=== PATIENT | male | born 1955 | race Caucasian/White ===

== ENCOUNTER → 2017-06-30 | Outpatient (CLI) | payer MEDICARE ==
[2017-06-30 09:06] LABS: Basophils % (A) 1 %; CHCM 34.1; Eosinophils # (A) 0.1 k/uL (0-0.7); Eosinophils % (A) 2 %; HCT 47.7 % (39.0-53.0); HDW 3.02; HGB 15.7 gm/dL (13.0-17.5); Luc # (Auto) 0.14; Luc % (Auto) 4; Lymphocytes # (A) 1.1 k/uL (1.0-4.8); Lymphocytes % (A) 31 %; MCV 97.2 fL (80.0-100.0); Mean Platelet Volume 6.4; Monocytes # (A) 0.3 k/uL (0-1.0); Monocytes % (A) 10 %; Neutrophils # (A) 1.8 k/uL (1.3-7.7); Neutrophils % (A) 52 %; RBC 4.91 m/uL (4.30-5.90); RDW 13.7 % (11.5-15.5); WBC 3.5 k/uL (3.8-10.6); WBC (Perox) 3.36
[2017-06-30 10:59] LABS: Erythrocyte Sedimentation Rate 4 mm/hr (0-15)
--- NOTE | 2017-06-30 15:46 | NM ---
EXAMINATION TYPE: NM bone 3 phase DATE OF EXAM: 06/30/2017 COMPARISON: Outside radiographs 06/23/2017 HISTORY: 62-year-old male with painful right total knee Technique: Triple phase bone scintigraphy was performed following the injection of28.7 mCi Tc 99m MDP . Immediate and pool images followed by 5 hours post injection images acquired. FINDINGS: Flow images show no asymmetric hyperemia. Pool images show relatively symmetrical radiotracer activity. Photopenic areas related to the patient 's bilateral knee arthroplasties. On the delayed images, mild increased periprosthetic tracer activity about both femoral and tibial co mponents appears symmetric from side to side. IMPRESSION: Bilateral total knee arthroplasties. There is no asymmetrically increased tracer activity on the righ t.
== END | disposition home or self-care (01) ==
LOC: RADNMMAIN 07:28
PROVIDERS: ATTEND Orthopaedic Surgery
DX: T84.84XD Pain due to internal orthopedic prosthetic devices, implants and grafts, subsequent encounter (principal); Z96.653 Presence of artificial knee joint, bilateral
CPT/HCPCS: 85652; 85025; 86140; 78315; 36415; A9503

== ENCOUNTER → 2017-12-17 | Outpatient (CLI) | payer MEDICARE ==
--- NOTE | 2017-12-17 12:20 | EST ---
EXERCISE STRESS DATE OF SERVICE: 12/17/2017 AGE: 62 SEX: Male HT: 5'10" WT: 230 PROTOCOL: Bon STAGE: III DURATION OF EXERCISE: 9:07 HEART RATE REST: 69 BLOOD PRESSURE REST: 137/94 MAXIMUM HEART RATE ACHIEVED: 143 MAXIMUM BLOOD PRESSURE: 211/80 85% MPHR: 136 100% MPHR: 160 METS: 10.5 INDICATIONS: Syncope, chest pain. CLINICAL INFORMATION: History of syncope. History of chest pain. Baseline heart rate 69 beats per minute. Baseline blood pressure is 137/94 mmHg. Baseline 12-lead ECG shows normal sinus rhythm with normal cardiac intervals. Patient exercised on a Bon protocol for 9 minutes 7 seconds achieving a peak heart rate of 143 beats per minute. Normal blood pressure response to exercise. There was no ECG evidence for ischemia. Occasional PVCs were noted, but no nonsustained ventricular tachycardia was noted. IMPRESSION: No ECG evidence for ischemia on the stress test. Good exercise capacity. Mildly hypertensive response to exercise. Peak blood pressure 211/80 mmHg. MMODL / IJN: [id number] /
--- NOTE | 2017-12-17 12:46 | ECHOF ---
Referral Reason:Chest R07.89 R55 Syncope MEASUREMENTS -------- HEIGHT: 180.3 cm WEIGHT: 104.3 kg BP: RVIDd: 3.4 cm (< 3.3) IVSd: 1.3 cm (0.6 - 1.1) LVIDd: 5.1 cm (3.9 - 5.3) LVPWd: 1.4 cm (0.6 - 1.1) IVSs: 1.6 cm LVIDs: 3.4 cm LVPWs: 1.5 cm LAESV Index (A-L): 32.95 ml/m Ao Diam: 3.5 cm (2.0 - 3.7) AV Cusp: 2.3 cm (1.5 - 2.6) LA Diam: 3.2 cm (2.7 - 3.8) MV E Cole: 0.56 m/s MV DecT: 325 ms MV A Cole: 0.81 m/s MV E/A Ratio: 0.69 AR PHT: 850 ms FINDINGS -------- Sinus rhythm. This was a technically adequate study. The left ventricular size is normal. There is mild concentric left ventricular hypertrophy. Overa ll left ventricular systolic function is low-normal with, an EF between 50 - 55 %. The right ventricle is mildly enlarged. The right ventricular systolic function is normal. LA is midly dilated 29-33ml/m2. RA appears enlarged. Aortic valve is trileaflet and is mildly thickened. There is mild aortic regurgitation. The aorti c pressure half-time by doppler is 850ms. There is no evidence of aortic stenosis. The mitral valve leaflets are mildly thickened. There is trace to mild mitral regurgitation. Trace tricuspid regurgitation present. Right ventricular systolic pressure is normal at < 35 mmHg. There is no evidence of pulmonary hypertension. The pulmonic valve was not well visualized. The aortic root is dilated, limited to the sinuses of valsalva measuring up to 4.5 cm. IVC Not well visulized. There is no pericardial effusion. CONCLUSIONS -------- 1. Sinus rhythm. 2. This was a technically adequate study. 3. The left ventricular size is normal. 4. There is mild concentric left ventricular hypertrophy. 5. Overall left ventricular systolic function is low-normal with, an EF between 50 - 55 %. 6. The right ventricle is mildly enlarged. 7. LA is midly dilated 29-33ml/m2. 8. RA appears enlarged. 9. Aortic valve is trileaflet and is mildly thickened. 10. There is mild aortic regurgitation. 11. The mitral valve leaflets are mildly thickened. 12. There is trace to mild mitral regurgitation. 13. Trace tricuspid regurgitation present. 14. Right ventricular systolic pressure is normal at < 35 mmHg. 15. There is no evidence of pulmonary hypertension. 16. The pulmonic valve was not well visualized. 17. The aortic root is dilated, limited to the sinuses of valsalva measuring up to 4.5 cm. 18. IVC Not well visulized. 19. There is no pericardial effusion. [employer]OW TRACTOR OPERATOR: Dayo Haynes RDCS
--- NOTE | 2017-12-17 15:13 | US ---
EXAMINATION TYPE: US carotid duplex BILAT DATE OF EXAM: 12/17/2017 COMPARISON: NONE CLINICAL HISTORY: Chest R07.89 R55 Syncope. EXAM MEASUREMENTS: RIGHT: Peak Systolic Velocity (PSV) cm/sec ----- Right CCA: 74.0 ----- Right ICA: 72.9 ----- Right ECA: 70.4 ICA/CCA ratio: 1.0 RIGHT: End Diastole cm/sec ----- Right CCA: 27.5 ----- Right ICA: 28.4 ----- Right ECA: 15.3 LEFT: Peak Systolic Velocity (PSV) cm/sec ----- Left CCA: 68.2 ----- Left ICA: 79.4 ----- Left ECA: 78.3 ICA/CCA ratio: 1.2 LEFT: End Diastole cm/sec ----- Left CCA: 22.0 ----- Left ICA: 37.9 ----- Left ECA: 13.7 VERTEBRALS (direction of flow): Right Vertebral: Antegrade Left Vertebral: Antegrade Rhythm: Normal No significant velocity elevations, mild plaque. Intimal thickening is evident on the right. Intimal thickening is present on the left. Some atheromat ous plaquing is present on the left. IMPRESSION: 1. Intimal thickening present bilaterally with some atheromatous plaquing on the left. No significant flow-limiting stenosis is evident. Criteria for Assigning % of Stenosis / Diameter reduction (Estimation based on the indirect measurements of the internal carotid artery velocities (ICA PSV). 1. Normal (no stenosis)=ICA PSV < 125 cm/s: ratio < 2.0: ICA EDV<40 cm/s. 2. Less than 50% stenosis=ICA PSV < 125 cm/s: ratio < 2.0: ICA EDV<40 cm/s. 3. 50 to 69% stenosis=ICA PSV of 125 to 230 cm/s: ration 2.0 ? 4.0: ICA EDV 40-100 cm/s. 4. Greater than 70% stenosis to near occlusion= ICA PSV > 230 cm/s: ratio > 4.0: ICA EDV > 100 cm/s. 5. Near occlusion= ICA PSV velocities may be low or undetectable: variable ratio and ICA EDV. 6. Total occlusion=unable to detect flow.
== END | disposition home or self-care (01) ==
LOC: RADUSMAIN 09:09
PROVIDERS: ATTEND Family Medicine
DX: I65.22 Occlusion and stenosis of left carotid artery (principal); I44.7 Left bundle-branch block, unspecified
CPT/HCPCS: 93017; 93306; 93880

== ENCOUNTER 2018-01-05 09:03 | Day surgery (SDC) | payer MEDICARE ==
[2018-01-02 09:31] VITALS: BMI 33.0
[~2018-01-05 09:03] MED LIST: LACTATED RINGERS 1,000 ML IV SCH; LIDOCAINE 1% 20 ML VIAL (10MG/ML) FOR IV START INTRADERMA PRN; MIDAZOLAM 2 MG/2 ML VIAL IV PRN
[2018-01-05 09:25] VITALS: TEMP 97.9
[2018-01-05] MEDS: LACTATED RINGERS 1,000 ML IV SCH ×2 (09:34→09:52)
[2018-01-05] MEDS ORDERED: PROPOFOL 10 MG/ML 20 ML VIAL IV ONE (09:55)
[2018-01-05] MEDS ORDERED: LIDOCAINE 1% INJ 10MG/ML (20 ML MDV) ONE (09:55)
--- NOTE | 2018-01-05 10:34 | P.PCN ---
Date of Procedure: 01/05/18 Procedure(s) Performed: Procedure: Esophagogastroduodenoscopy and biopsy. Preoperative diagnosis: Dysphagia and history of esophageal gastroesophageal reflux and strictures. Postoperative diagnosis: 1. Sliding hiatal hernia with mild corrugations of the esophagus raising the possibility of using a filling esophagitis. 2. Mild antral gastritis. No esophageal strictures or any indication for dilation of the esophagus. 3. Multiple biopsies obtained from the duodenum, antrum and esophagus. Preparation and sedation: Was provided by anesthesia. Brief clinical history: The patient is a 62-year-old male who is scheduled for this evaluation because of recurrence of his dysphagia more noticeable over the last few months with no weight loss or other alarm symptoms. The patient had history of esophageal stricture that has been dilated on more than one occasion in the past. He is currently on omeprazole. Procedure: With the patient on his left lateral decubitus position and after informed consent and adequate sedation, I passed the Olympus-GIF 160 video upper endoscope through the cricopharyngeus down the esophagus. GE junction was around 41 cm from the incisors and there was a 1-2 cm sliding hiatal hernia but no obvious esophagitis or complicated reflux disease. There was some mild corrugations of the esophagus raising the possibility of eosinophilic esophagitis. The endoscope was then passed into the stomach which was insufflated with air and inspected in detail including the retroflex view in the cardia. There was mottling and erythema in the antrum but no ulcers or erosions. Pyloric channel, duodenal bulb, post bulbar area and descending duodenum appeared within normal limits. I obtained biopsies from the duodenum, antrum and esophagus then the endoscope was withdrawn. The patient tolerated the procedure well. Plan: The patient was reassured. Will await biopsy results and make further recommendations based on his course and biopsy results. I will keep you updated on his progress.
[2018-01-05 10:49] VITALS: BP 134/82; PULSE 59; RESP 18
== END 2018-01-05 11:28 | disposition home or self-care (01) ==
LOC: ORWHC2ENDO 09:03
DX: K29.50 Unspecified chronic gastritis without bleeding (principal); K31.89 Other diseases of stomach and duodenum; K44.9 Diaphragmatic hernia without obstruction or gangrene; R13.10 Dysphagia, unspecified; Z86.718 Personal history of other venous thrombosis and embolism; Z79.01 Long term (current) use of anticoagulants; Z79.1 Long term (current) use of non-steroidal anti-inflammatories (NSAID); Z79.899 Other long term (current) drug therapy
CPT/HCPCS: 88305; 43239; J2001; J2704

== ENCOUNTER → 2018-08-07 | Outpatient (CLI) | payer MEDICARE ==
--- NOTE | 2018-08-07 17:32 | CT ---
EXAMINATION TYPE: CT angio chest DATE OF EXAM: 08/07/2018 COMPARISON: NONE HISTORY: Thoracic aortic aneurysm CT DLP: 535 mGycm. Automated Exposure Control for Dose Reduction was Utilized. CONTRAST: CTA scan of the thorax is performed with IV Contrast, patient injected with 100 mL of Isovue 300, pul monary embolism protocol. Three-D reconstructed Images are created on an independent workstation and reviewed. FINDINGS: LUNGS: The lungs are grossly clear, there is no concerning parenchymal mass or nodule identified. T here is no pleural effusion or pneumothorax seen. The tracheobronchial tree is patent. MEDIASTINUM: There is satisfactory enhancement of the pulmonary artery and its branches, there is no CT evidence for pulmonary embolism. There are no greater than 1 cm hilar or mediastinal lymph nodes. No cardiomegaly or pericardial effusion is seen. Main pulmonary artery measures 2.7 cm diameter bi furcation. Adjacent ascending aorta measures up to 3.5 cm on axial image 27. There is three-vessel or igin from the arch with mild peripheral plaque. No aneurysm to the descending thoracic aorta is prese nt. OTHER: Visualized liver is hypodense consistent with fatty infiltration. There are subcentimeter low dense lesion right hepatic lobectomy 58 to small to definitively characterize presumed benign. Debris -filled stomach suggests recent meal ingestion. Mild multilevel spurring in the thoracic spine is pre sent. There is an infrarenal IVC filter noted. IMPRESSION: 1. Ectasia of the ascending aorta up to 3.5 cm.
== END | disposition home or self-care (01) ==
LOC: RADCTMAIN 16:23
PROVIDERS: ATTEND Internal Medicine Cardiovascular Disease
DX: I77.810 Thoracic aortic ectasia (principal)
CPT/HCPCS: 71275; Q9967

== ENCOUNTER → 2020-12-07 | Outpatient (CLI) | payer MEDICARE ==
--- NOTE | 2020-12-07 12:44 | XR ---
EXAMINATION TYPE: XR shoulder complete LT DATE OF EXAM: 12/07/2020 CLINICAL HISTORY: pain COMPARISON: NONE TECHNIQUE: Three views of the left shoulder are obtained. FINDINGS: There is no acute fracture/dislocation evident. The acromioclavicular and glenohumeral rojas int spaces appear within normal limits. The visualized ribs are intact and unremarkable. IMPRESSION: 1. There is no acute fracture or dislocation. ICD 10 NO FRACTURE, INITIAL EVALUATION
--- NOTE | 2020-12-07 12:50 | XR ---
EXAMINATION TYPE: XR lumbosacral spine min 4V DATE OF EXAM: 12/07/2020 CLINICAL HISTORY: pain COMPARISON: NONE TECHNIQUE: Frontal, lateral, and oblique images of the lumbar spine are obtained. FINDINGS: There are 5 lumbar type vertebral bodies identified. The lumbar spine shows satisfactory alignment without evidence of acute fracture or dislocation. Vertebral body heights are within normal limits. Severe multilevel degenerative disc space narrowing and spondylosis extending from L3-4 thro ugh L5-S1. The overlying soft tissue appears unremarkable. IMPRESSION: No acute fracture or dislocation is seen in the lumbar spine.ICD 10 NO FRACTURE, INITIAL EVALUATION
--- NOTE | 2020-12-07 12:52 | XR ---
EXAMINATION TYPE: XR Hip Bilateral Complete DATE OF EXAM: 12/07/2020 CLINICAL HISTORY: pain TECHNIQUE: AP and frogleg views of the bilateral hips are obtained. COMPARISON: None. FINDINGS: There is no acute fracture/dislocation evident. The joint spaces demonstrate moderate narr owing bilaterally right slightly greater than left. The overlying soft tissue appears unremarkable. IMPRESSION: 1. There is no acute fracture or dislocation. ICD 10 NO FRACTURE, INITIAL EVALUATION
== END | disposition home or self-care (01) ==
LOC: RADXRMAIN 12:11
PROVIDERS: ATTEND Family Medicine
DX: M25.551 Pain in right hip (principal); M25.512 Pain in left shoulder; M54.5 Low back pain
CPT/HCPCS: 72110; 73521

== ENCOUNTER → 2022-04-11 | Outpatient (CLI) | payer MEDICARE ==
--- NOTE | 2022-04-11 16:13 | XR ---
EXAMINATION TYPE: XR lumbosacral spine 5 views DATE OF EXAM: 04/11/2022 Comparison: 12/07/2020 Clinical History: 66-year-old male M25.559 Pain in hip, R10. 2 Pelvic pain Findings: Trapezoid IVC filter noted. 5 lumbar type vertebral bodies. Hypertrophic facet arthropathy mid to low er lumbar spine. Somewhat short appearance to the pedicles in the lower lumbar spine could reflect un derlying congenital spinal canal stenosis. Moderate to advanced degenerative disc disease L4-L5 and L 5-S1 and mild to moderate L2-L4. Vertebral body heights are preserved and alignment is maintained. Ch anges may have minimally progressed from 12/07/2020. Impression: 1. Severe hypertrophic facet arthropathy especially mid to lower lumbar spine. No malalignment or radha tebral compression collapse. 2. Possible underlying congenital spinal canal stenosis mid and lower lumbar spine given somewhat didi rt appearance to the pedicles on the lateral view. 3. Moderate to advanced disc/endplate degenerative change lower lumbar spine may have minimally progr essed from 2020.
--- NOTE | 2022-04-11 16:15 | XR ---
EXAMINATION TYPE: XR Hip Bilateral and AP pelvis DATE OF EXAM: 04/11/2022 COMPARISON: 12/07/2020 HISTORY: 66-year-old male M25. 559 Pain in hip, R10. 2 Pelvic pain TECHNIQUE: AP view pelvis and 2 views each hip. FINDINGS: Moderate to severe axial joint space narrowing at both hips. There is marginal spurring. Mild degener ative change at the bilateral SI joints. Pubic symphysis is intact. No acute fracture, subluxation, o r dislocation. IMPRESSION: At least moderate bilateral hip OA, relatively similar to prior exam with pronounced axial joint spac e narrowing. No acute osseous abnormality seen.
== END | disposition home or self-care (01) ==
LOC: RADXRMAIN 14:52
PROVIDERS: ATTEND Family Medicine
DX: M47.816 Spondylosis without myelopathy or radiculopathy, lumbar region (principal)
CPT/HCPCS: 72110; 73521

== ENCOUNTER → 2022-09-19 | Outpatient (CLI) | payer MEDICARE ==
[2022-09-19 10:43] LABS: African American GFR (CKD) >90 (>60 ml/min/1.73 sqM); Blood Urea Nitrogen 17 mg/dL (9-20); Non-African American GFR(CKD) >90 (>60 ml/min/1.73 sqM)
--- NOTE | 2022-09-19 12:05 | CT ---
EXAMINATION TYPE: CT angio chest DATE OF EXAM: 09/19/2022 11:20 AM COMPARISON: 08/07/2018 HISTORY: thoracic aneurysm CT DLP: 1019 mGycm Automated exposure control for dose reduction was used. CONTRAST: CTA scan of the thorax is performed without and with IV Contrast, patient injected with 100 mL of Iso jammie 370, pulmonary embolism protocol. . FINDINGS: LUNGS: The lungs are grossly clear, there is no concerning parenchymal mass or consolidative pneumoni a identified. There is no pleural effusion or pneumothorax seen. The tracheobronchial tree is muir nt. 4 mm calcified granuloma right upper lobe linear changes right lung base suggests scar or atelect asis. 2 mm nodule left lung base MEDIASTINUM: There is satisfactory enhancement of the pulmonary artery and its branches, there is no CT evidence for pulmonary embolism. There are no greater than 1 cm hilar or mediastinal lymph nodes. No cardiomegaly or pericardial effusion is seen. Main pulmonary artery measures 2.7 cm diameter bi furcation. Adjacent ascending aorta measures up to 3.5 cm. There is three -vessel origin from the arc h with mild peripheral plaque. No aneurysm to the descending thoracic aorta is present. OTHER: Hypertrophic and degenerative changes of the spine IVC filter incidentally noted. Small hypod ensity right lobe of the liver measuring 9 mm and 5 Hounsfield units suggestive of cyst. There is a 6 .2 cm soft tissue lipoma along the right posterior chest wall and flank similar to prior CT scan. IMPRESSION: 1. No evidence of aortic aneurysm. Size of the aorta is stable relative to prior exam. 2. Stable large 6.2 cm lipoma along the lower posterior lateral chest wall and flank most likely on t he basis of a lipoma. Atypical lipoma not excluded given size of lesion. 3. Subcentimeter pulmonary nodules as discussed above to small to characterize but likely benign.
== END | disposition home or self-care (01) ==
LOC: RADCTMAIN 09:53
PROVIDERS: ATTEND Internal Medicine Interventional Cardiology
DX: D17.1 Benign lipomatous neoplasm of skin and subcutaneous tissue of trunk (principal); I71.20 Thoracic aortic aneurysm, without rupture, unspecified; R91.8 Other nonspecific abnormal finding of lung field
CPT/HCPCS: 82565; 84520; 71275; 36415; Q9967

== ENCOUNTER → 2022-10-16 | Outpatient (CLI) | payer MEDICARE ==
--- NOTE | 2022-10-16 15:20 | XR ---
EXAMINATION TYPE: XR shoulder complete BILAT DATE OF EXAM: 10/16/2022 CLINICAL HISTORY: pain TECHNIQUE: Three views of the bilateral shoulders are obtained. COMPARISON: None FINDINGS: There is no acute fracture/dislocation evident. The acromioclavicular and glenohumeral rojas int spaces appear mildly narrowed. The visualized ribs are intact and unremarkable. IMPRESSION: 1. There is no acute fracture or dislocation. ICD 10 NO FRACTURE, INITIAL EVALUATION
== END | disposition home or self-care (01) ==
LOC: RADXRMAIN 14:52
PROVIDERS: ATTEND Family Medicine
DX: M25.511 Pain in right shoulder (principal); M25.512 Pain in left shoulder

== ENCOUNTER → 2024-07-19 | Outpatient (CLI) | payer MEDICARE ==
[2024-07-19 11:01] LABS: African American GFR (CKD) >90 (>60 ml/min/1.73 sqM); Blood Urea Nitrogen 13 mg/dL (9-20); Non-African American GFR(CKD) >90 (>60 ml/min/1.73 sqM)
--- NOTE | 2024-07-19 12:38 | CT ---
EXAMINATION TYPE: CT angio chest CT DLP: 688 mGycm, Automated exposure control for dose reduction was used. DATE OF EXAM: 07/19/2024 12:24 PM COMPARISON: CTA chest 09/19/2022, 08/07/2018 CLINICAL INDICATION:Male, 69 years old with history of I71.20 THORACIC AORTIC ANEURYSM; Thoracic Aneu rysm TECHNIQUE/CONTRAST: CTA scan of the thorax is performed without and with IV Contrast, patient injected with 100 ml mL of Isovue 370. MIP images are created and reviewed. FINDINGS: Lungs/Pleura: No evidence of focal consolidation, pleural effusion or pneumothorax. Scattered calcifi ed granulomas. No new or enlarging pulmonary nodule. Airway: Large airways are patent. Heart: Heart is within normal limits for size.. No pericardial effusion. Small aortic valvular calcif ications. Vasculature: No evidence of intramural hematoma or dissection. Bovine aortic arch. Aortic root measur es up to 3.7 cm. Ascending thoracic aorta measures up to 3.9 cm. Descending thoracic aorta measures u p to 3.0 cm. No evidence of pulmonary embolism. Mediastinum: No gross evidence of adenopathy. Musculoskeletal: No acute osseous abnormalities. Bilateral shoulder arthropathy. Mild multilevel dege nerative disc disease. Redemonstration of soft tissue lipoma along the right posterior chest wall and flank measuring up to 6 cm. Soft Tissues: Unremarkable. Lower neck: No significant findings. Upper Abdomen: Several subcentimeter hypodense foci within liver which are too small character is lik radha represent cysts.. IMPRESSION: No evidence of aortic aneurysm. Overall stable size of the aorta. No evidence for intramural hematoma or dissection. [facility], , 07/19/2024 12:35 PM
== END | disposition home or self-care (01) ==
LOC: RADCTMAIN 10:01
PROVIDERS: ATTEND Internal Medicine Interventional Cardiology
DX: I71.20 Thoracic aortic aneurysm, without rupture, unspecified (principal); Q25.49 Other congenital malformations of aorta; D17.79 Benign lipomatous neoplasm of other sites
CPT/HCPCS: 82565; 84520; 71275; 36415; Q9967